=== PATIENT | male | born 1980 | race Caucasian/White ===

== ENCOUNTER 2017-11-01 13:39 | Emergency (ER) | payer OTHER | END 2017-11-01 17:37 | disposition home or self-care (01) | LOC: M ED 13:39 | DX: S86.912A Strain of unspecified muscle(s) and tendon(s) at lower leg level, left leg, initial encounter (principal); X58.XXXA Exposure to other specified factors, initial encounter; Y92.89 Other specified places as the place of occurrence of the external cause; I10 Essential (primary) hypertension; E78.5 Hyperlipidemia, unspecified; J45.909 Unspecified asthma, uncomplicated; F17.200 Nicotine dependence, unspecified, uncomplicated; Z79.899 Other long term (current) drug therapy; Z79.1 Long term (current) use of non-steroidal anti-inflammatories (NSAID) | CPT/HCPCS: 73564 ==

== ENCOUNTER 2019-12-06 10:01 | Day surgery (SDC) | payer OTHER ==
[~2019-12-06] VITALS: Ht 180.3 cm; Wt 103.4 kg
[~2019-12-06 10:01] MED LIST: D3 H10002 PO; FISH1000 PO; IBUP-1022 PO; LIPI80TA PO; LISI-538 PO; MELO15TA28 PO; METF-838 PO; MONT10TA4 PO; NAPR-832 PO; NS 1,000 ML IV ONE; PROAAER10 INH; SING10TA32 PO; SYMB80INH INH; TENO1TAB4 PO; VITA50005 PO
[2019-12-06] MEDS ORDERED: LIDOCAINE 2% 100MG/5ML SDV (FOR ANES.) As Ordered ONE (10:25)
[2019-12-06] MEDS ORDERED: propofoL 200 MG/20 ML VIAL As Ordered ONE (11:01)
--- NOTE | 2019-12-06 11:18 | ROOR ---
Patient Name: Jake Velazquez Procedure Date: 12/06/2019 11:01 AM Date of : 1980 Age: 39 Room: [facility] Gender: Male Note Status: Finalized Procedure: Total Colonoscopy to Cecum Indications: Screening in patient at increased risk: Colorectal cancer in father before age 60 Providers: Robby Alonso MD Referring MD: Bony [facility] [place], [facility], Admin. Requesting Provider: Medicines: Monitored Anesthesia Care Complications: No immediate complications. Procedure: Pre-Anesthesia Assessment: - The heart rate, respiratory rate, oxygen saturations, blood pressure, adequacy of pulmonary ventilation, and response to care were monitored throughout the procedure. The Colonoscope was introduced through the anus and advanced to the cecum, identified by appendiceal orifice and ileocecal valve. The colonoscopy was performed without difficulty. The patient tolerated the procedure well. The quality of the bowel preparation was excellent. Findings: The perianal and digital rectal examinations were normal. No other significant abnormalities were identified in a careful examination of the remainder of the colon. The exam was otherwise without abnormality on direct and retroflexion views. Impression: - The examination was otherwise normal on direct and retroflexion views. - No specimens collected. - The exam was otherwise normal to the cecum. Recommendation: - Patient has a contact number available for emergencies. The signs and symptoms of potential delayed complications were discussed with the patient. Return to normal activities tomorrow. Written discharge instructions were provided to the patient. - High fiber diet. - Discharge patient to home. - Continue present medications. - Repeat colonoscopy in 5 years for screening purposes. - Return to referring physician. - The findings and recommendations were discussed with the patient's family. Robby Alonso MD Robby Alonso MD 12/06/2019 11:18:18 AM Electronically signed by Robby Alonso MD Number of Addenda: 0 Note Initiated On: 12/06/2019 11:01 AM Estimated Blood Loss: Estimated blood loss: none.
[2019-12-06 11:40] VITALS: BP 124/84
== END 2019-12-06 11:51 | disposition home or self-care (01) ==
LOC: M OPP 10:01
PROVIDERS: ATTEND Internal Medicine Gastroenterology
DX: Z12.11 Encounter for screening for malignant neoplasm of colon (principal); Z80.0 Family history of malignant neoplasm of digestive organs; E11.9 Type 2 diabetes mellitus without complications; I10 Essential (primary) hypertension; F17.210 Nicotine dependence, cigarettes, uncomplicated; Z79.84 Long term (current) use of oral hypoglycemic drugs; Z79.899 Other long term (current) drug therapy

== ENCOUNTER → 2022-03-11 | Outpatient (REF) ==
[~2022-03-11] MED LIST changes: -LISI-538 PO; +LISI20TA33 PO; -MONT10TA4 PO; +MONT10TA97 PO; -NS 1,000 ML IV ONE
== END ==
LOC: M RAD 09:51
PROVIDERS: ATTEND Internal Medicine
DX: M25.511 Pain in right shoulder (principal)